=== PATIENT | female | born 1960 | race Caucasian/White ===

== ENCOUNTER 2021-05-18 09:35 | Inpatient (IN) ==
[2021-05-18] MEDS ORDERED: 0.9 % Sodium Chloride 500 ML ONE (09:42)
[2021-05-18] MEDS ORDERED: *HR* Heparin 5,000 UNIT/ML VIAL IVP ONE (09:43)
[2021-05-18] MEDS ORDERED: 0.9 % Sodium Chloride 500 ML IVC ONE (09:43)
[2021-05-18] MEDS ORDERED: *HR* Heparin 5,000 UNIT/ML VIAL ONE (09:45)
[2021-05-18] MEDS ORDERED: *HR* Ticagrelor 90 MG TABLET ONE (09:45)
[2021-05-18] MEDS ORDERED: 0.9 % Sodium Chloride 1,000 ML ONE ×3 (09:45→11:05)
[2021-05-18] MEDS ORDERED: Ondansetron 4 MG/2 ML VIAL IVP ONE (09:46)
[2021-05-18] MEDS ORDERED: Aspirin 81 MG TAB.CHEW ONE (09:46)
[2021-05-18] MEDS ORDERED: *HR* FentaNYL (PF) 100 MCG/2 ML VIAL IVP ONE (09:46)
[2021-05-18] MEDS ORDERED: *HR* Ticagrelor 90 MG TABLET PO ONE (09:47)
[2021-05-18 09:55] LABS: Basophils # 0.1 K/mcL (0.0-0.2); Basophils % 0.8 %; Eosinophils # 0.3 K/mcL (0.0-0.6); Eosinophils % 2.5 %; Hematocrit 43.2 % (35.3-44.9); Hemoglobin 13.9 g/dL (11.5-15.4); Immature Granulocytes % 0.4 % (0-4); Lymphocytes # 2.8 K/mcL (0.6-4.6); Lymphocytes % 25.2 %; Mean Corpuscular HGB Conc 32.2 g/dL (31.6-35.5); Mean Corpuscular Hemoglobin 28.7 pg (28.0-33.3); Mean Corpuscular Volume 89.1 fL (83.0-100.0); Mean Platelet Volume 11.7 fL (9.4-12.4); Monocytes # 0.5 K/mcL (0.0-1.3); Monocytes % 4.8 %; Neutrophils # 7.4 K/mcL (1.6-8.9); Platelet Count 323 K/mcL (140-400); Red Blood Count 4.85 M/mcL (3.82-4.97); Red Cell Distribution Width 13.3 % (11.5-14.5); Segmented Neutrophils % 66.3 %; White Blood Count 11.2 K/mcL (4.3-11.1)
[2021-05-18 10:03] LABS: Prothrombin Time 12.1 Seconds (9.4-12.1)
[2021-05-18 10:05] LABS: Activated Partial Thrombo Time 29.2 Seconds (26.0-36.0)
[2021-05-18] MEDS ORDERED: *HR* FentaNYL (PF) 100 MCG/2 ML VIAL ONE (10:08)
[2021-05-18] MEDS ORDERED: *HR* Midazolam HCl 2 MG/2 ML VIAL ONE (10:08)
[2021-05-18] MEDS ORDERED: *HR* Atropine Sulfate 1 MG/10 ML SYRINGE ONE (10:10)
[2021-05-18 10:16] LABS: BUN/Creatinine Ratio 21 (6-26); Blood Urea Nitrogen 22 mg/dL (8-23); Calcium 9.6 mg/dL (8.6-10.3); Carbon Dioxide 21 mEq/L (23-29); Chloride 106 mEq/L (98-107); Glucose 164 mg/dL (70-105); Osmolality,Calculated 297 (280-300); Potassium 3.9 mEq/L (3.5-5.1); Sodium 140 mEq/L (136-145); eGFR For African Americans > 60 (> 60); eGFR For Non-African Americans 52 (> 60)
[2021-05-18 10:18] LABS: Troponin I 0.03 ng/mL (< 0.04)
[2021-05-18] MEDS ORDERED: Tirofiban 12.5 MG/250ML 12.5 MG/250 ML BAG ONE (10:19)
[2021-05-18] MEDS ORDERED: ISOVUE-370 200 ML INFUS..BTL ONE (10:40)
[2021-05-18] MEDS ORDERED: Perflutren Lipid Microsphere 1.3 ML in 0.9 % Sodium Chloride 8.7 ML IVP PRN (10:49)
[2021-05-18] MEDS ORDERED: Ondansetron 4 MG/2 ML VIAL ONE (10:50)
[2021-05-18] MEDS ORDERED: *HR* Heparin 10,000 UNIT/10 ML VIAL ONE (11:05)
[2021-05-18] MEDS ORDERED: Nitroglycerin 1,000 MCG/5 ML VIAL IV ONE (11:05)
[2021-05-18] MEDS ORDERED: Heparin 1,000 UNITS/500 mL 500 ML ONE (11:05)
[2021-05-18] MEDS ORDERED: 0.9 % Sodium Chloride 1,000 ML IVC SCH (11:30)
[2021-05-18] MEDS: *HR* Ticagrelor 90 MG TABLET PO SCH (20:10)
[2021-05-19 05:42] LABS: Hematocrit 43.5 % (35.3-44.9); Hemoglobin 13.4 g/dL (11.5-15.4)
[2021-05-19 06:10] LABS: Troponin I 11.18 ng/mL (< 0.04)
[2021-05-19 06:24] LABS: BUN/Creatinine Ratio 17 (6-26); Blood Urea Nitrogen 16 mg/dL (8-23); eGFR For African Americans > 60 (> 60); eGFR For Non-African Americans > 60 (> 60)
[2021-05-19] MEDS ORDERED: Nitroglycerin 0.4 MG TAB.SUBL SL PRN ×2 (08:24→11:44)
[2021-05-19] MEDS: *HR* Ticagrelor 90 MG TABLET PO SCH ×2 (08:30→20:25)
[2021-05-19] MEDS ORDERED: Aspirin 81 MG TAB.CHEW PO SCH (09:00)
[2021-05-20 07:21] VITALS: BP 153/92; PULSE 77; TEMP 97.6; O2SAT 98
[2021-05-20] MEDS: *HR* Ticagrelor 90 MG TABLET PO SCH (08:23)
[2021-05-20] MEDS ORDERED: Aspirin 81 MG TAB.CHEW PO SCH (09:00)
[2021-05-20] MEDS ORDERED: lisinopriL 5 MG TABLET PO SCH (09:00)
== END 2021-05-20 11:27 | disposition home or self-care (01) | DRG 247 ==
LOC: EMEROOARM 09:35 → 3BNU 09:35 → ICNU 10:03 → OBSVTOIN 10:27 → ICNU 10:29 → 2NNU 05-19 12:42
PROVIDERS: ADMIT Internal Medicine; ATTEND Internal Medicine Cardiovascular Disease